=== PATIENT | female | born 1965 | race Caucasian/White ===

== ENCOUNTER 2016-11-14 12:54 | Emergency (ER) | payer OTHER ==
[~2016-11-14] VITALS: Ht 154.9 cm; Wt 67.0 kg
[~2016-11-14 12:54] MED LIST: DICY10CA60 PO; IBUP-1542 PO; MAG-19 PO; METO10TA92 PO; OMEP20CA9 PO; ONDA4TAB35 PO; ORPH100T PO; PANT40TA3 PO; PROC10TA10 PO; RANI15SY28 PO; amlodipine
[2016-11-14 13:05] VITALS: Ht 154.9 cm; Wt 67.0 kg
[2016-11-14] MEDS ORDERED: KETOROLAC 60 MG INJ IM STA (13:37)
[2016-11-14] MEDS ORDERED: TRAM50TA2 PO (13:41)
[2016-11-14] MEDS ORDERED: MED4DP PO (13:41)
[2016-11-14] MEDS ORDERED: NAPR-260 PO (13:41)
[2016-11-14 14:05] VITALS: BP 140/78; PULSE 78; RESP 16; TEMP 98.3
--- NOTE | 2016-11-14 17:50 | ERD ---
DATE OF SERVICE: HISTORY OF PRESENT ILLNESS: The patient is a 51-year-old female coming in complaining of occipital head pain. Patient states that she has had this in the past. She took Tylenol with no alleviation o f symptoms. She states that she has paraspinous cervical pain, no midline cervical pain, no recent trauma, no vomiting. Describes it as a burning sharp sensation. No weakness in her extremities. S he never had anything like this before. Denies any headaches. PAST MEDICAL HISTORY: Denies medical problems. ALLERGIES: PERCOCET. PAST SURGICAL HISTORY: . SOCIAL HISTORY: Denies. REVIEW OF SYSTEMS: A 12-point review of systems was done. Refer to HPI for positives, all other sy stems negative. PHYSICAL EXAMINATION VITAL SIGNS: Temperature is 98.3, pulse 78, blood pressure is 125/58, respiratory rate 16, O2 satur ation 99% on room air. Pain intensity is 9/10. GENERAL: The patient is well-appearing, well-nourished, no acute distress. The patient is tender to palpation over the bilateral paraspinous muscles along the cervical spine. There is no midline tenderness. NECK: C-spine is soft and supple. There is no meningismus. There is no cervical lymphadenopathy. No JVD. No bruits. No goiter. CHEST: Clear to auscultation bilaterally. There are no rales, wheezes or rhonchi. HEART: Regular rate and rhythm. No murmurs, clicks, rubs or gallops. No S3 or S4. EXTREMITIES: Equal pulses bilaterally. There is no peripheral clubbing, cyanosis or edema. No focal swelling or erythema. Full range of motion. Grossly neurovascularly intact. NEURO: Alert and oriented. Cranial nerves II through XII intact. Motor strength in all 4 extremitie s with 5/5 strength. Sensation grossly intact. Normal speech and gait. Babinski negative. DTR 2+ th roughout. SKIN: There is no apparent rash or petechia. The skin is warm and dry. DIAGNOSIS: Cervical radiculopathy. MEDICAL DECISION MAKING: Patient's pain associated with radicular pain. I did not feel that there was indication for imaging or blood work. I have low suspicion for bacterial or infectious etiology . I feel the patient's pain is likely neuro or nerve inflammation. DISCHARGE: The patient is discharged stable. Patient is given a prescription for tramadol and Medr ol Dosepak and told to follow up with primary care within 1 to 2 days for reevaluation. The patient was told if symptoms progress or worsen to return to the ER. All other questions answered at time of discharge. Discharge summary given at the time of departure. Patient understood and complied wi th plan. Dictated By: SHIV GILL PA for [facility] Conf#: [id number] DID#: [id number]
== END 2016-11-14 14:08 | disposition home or self-care (01) ==
LOC: FTE 12:54
DX: M54.12 Radiculopathy, cervical region (principal)
CPT/HCPCS: 96372; J1885